=== PATIENT | female | born 1990 | race Caucasian/White ===

== ENCOUNTER 2019-06-01 13:30 | Outpatient (RCR) | payer OTHER ==
[~2019-06-01 13:30] MED LIST: ALPRAZOLAM; ANUSOL-HC SUPPO25 MG RC; EFFEXOR; FLEXERIL 1010 MG/TAB PO; MOTRIN 800800 MG/TAB PO; NO HOME MEDICATIONS; NORCO 325 MG-51 TAB PO
== END 2019-06-19 10:26 | disposition home or self-care (01) ==
LOC: WSOH 13:30
DX: S83.401D Sprain of unspecified collateral ligament of right knee, subsequent encounter (principal); Z96.651 Presence of right artificial knee joint; F17.210 Nicotine dependence, cigarettes, uncomplicated; Y99.0 Civilian activity done for income or pay
CPT/HCPCS: 24774; L1810

== ENCOUNTER → 2019-06-12 | Outpatient (CLI) | payer OTHER | LOC: COL.RAD 12:02 | DX: S83.241A Other tear of medial meniscus, current injury, right knee, initial encounter (principal) ==

== ENCOUNTER 2019-10-22 14:25 | Outpatient (RCR) | payer OTHER | END 2020-01-20 | disposition home or self-care (01) | LOC: WSOH | DX: S62.354A Nondisplaced fracture of shaft of fourth metacarpal bone, right hand, initial encounter for closed fracture (principal); Z96.651 Presence of right artificial knee joint; Z98.890 Other specified postprocedural states; F41.8 Other specified anxiety disorders; Y99.0 Civilian activity done for income or pay ==

== ENCOUNTER 2020-05-23 14:08 | Outpatient (RCR) | payer OTHER | END 2020-08-21 | disposition home or self-care (01) | LOC: WSOH | DX: S00.83XA Contusion of other part of head, initial encounter (principal); F41.8 Other specified anxiety disorders; F17.210 Nicotine dependence, cigarettes, uncomplicated; Z98.890 Other specified postprocedural states; Y99.0 Civilian activity done for income or pay ==

== ENCOUNTER 2020-08-29 16:07 | Outpatient (RCR) | payer OTHER | END 2020-11-27 | disposition home or self-care (01) | LOC: WSOH | DX: S51.812A Laceration without foreign body of left forearm, initial encounter (principal); Y99.0 Civilian activity done for income or pay; Z98.890 Other specified postprocedural states ==

== ENCOUNTER 2020-12-26 06:41 | Emergency (ER) | payer OTHER ==
[~2020-12-26] VITALS: Ht 170.2 cm; Wt 81.8 kg
[2020-12-26 06:51] VITALS: BP 115/71; PULSE 71; TEMP 98.5
[2020-12-26] MEDS ORDERED: BACTRIM DS 8001 TAB PO (07:09)
== END 2020-12-26 07:30 | disposition home or self-care (01) ==
LOC: COL.ER 06:41
DX: L02.413 Cutaneous abscess of right upper limb (principal); R59.0 Localized enlarged lymph nodes; F17.210 Nicotine dependence, cigarettes, uncomplicated

== ENCOUNTER 2021-03-03 11:22 | Day surgery (SDC) | payer OTHER ==
[~2021-03-03] VITALS: Ht 170.2 cm; Wt 85.6 kg
[~2021-03-03 11:22] MED LIST changes: +BACTRIM DS 8001 TAB PO
[2021-03-03] MEDS ORDERED: CELEXA 20MG20 MG/TAB PO (11:36)
[2021-03-03 11:42] VITALS: BP 126/77; PULSE 79; TEMP 97.4
[2021-03-03 13:25] VITALS: BP 127/86; PULSE 66
--- NOTE | 2021-03-03 13:25 | NUR ---
Patient returns to [facility] per cart after having EGD/colonoscopy and is awake and alert. Transfers from cart to recliner with standby assist. IV fluids infusing. Temp 98.3. Denies pain or nausea. Given Pepsi and chocolate muffin. Mother in room. Call light in reach.
[2021-03-03 13:40] VITALS: BP 124/81; PULSE 66
--- NOTE | 2021-03-03 13:40 | NUR ---
Dr. Cortez here and talks with the patient and all questions answered.
[2021-03-03 13:55] VITALS: BP 134/81; PULSE 63
--- NOTE | 2021-03-03 13:55 | NUR ---
Continues to deny pain or nausea.
--- NOTE | 2021-03-03 14:00 | NUR ---
IV discontinued and site is free of redness or swelling. Patient dresses self.
--- NOTE | 2021-03-03 14:15 | NUR ---
Dismissal instructions given and voices understanding of these. Instructed to start OTC Prilosec and Imodium for symptom relief. Office will notify patient of biopsies.
--- NOTE | 2021-03-03 14:19 | NUR ---
Patient dismissed to home driven by parent and taken to vehicle per wheelchair and assisted into car with dismissal instructions in hand.
== END 2021-03-03 14:19 | disposition home or self-care (01) ==
LOC: SDCO 11:22
DX: R19.7 Diarrhea, unspecified (principal); R19.4 Change in bowel habit; K64.8 Other hemorrhoids; R10.13 Epigastric pain; J45.909 Unspecified asthma, uncomplicated; F41.9 Anxiety disorder, unspecified; F31.9 Bipolar disorder, unspecified; Z87.891 Personal history of nicotine dependence; Z79.899 Other long term (current) drug therapy; Z83.3 Family history of diabetes mellitus; Z82.49 Family history of ischemic heart disease and other diseases of the circulatory system; Z82.3 Family history of stroke; Z80.0 Family history of malignant neoplasm of digestive organs
CPT/HCPCS: J2704; J7120

== ENCOUNTER 2022-03-17 21:05 | Emergency (ER) | payer SELFPAY ==
[~2022-03-17] VITALS: Ht 170.2 cm; Wt 95.5 kg
[~2022-03-17 21:05] MED LIST changes: +CELEXA 20MG20 MG/TAB PO
[2022-03-17 21:12] VITALS: BP 146/83; TEMP 98.2
[2022-03-17] MEDS ORDERED: PREDNISONE20 MG PO (21:43)
[2022-03-17 22:09] VITALS: PULSE 79
== END 2022-03-17 22:09 | disposition home or self-care (01) ==
LOC: COL.ER 21:05
DX: B08.4 Enteroviral vesicular stomatitis with exanthem (principal)